=== PATIENT | female | born 1970 | race Caucasian/White ===

== ENCOUNTER 2017-07-06 19:47 | Emergency (ER) | payer BC, SELFPAY ==
[2017-07-06 19:52] VITALS: BP 162/92; PULSE 88; RESP 22; TEMP 37.2; O2SAT 95; BMI 43.7
--- NOTE | 2017-07-06 20:03 | XR_ITS ---
XR chest 2V HISTORY: ITS.REASON: shortness of breath ORDERING PHYSICIAN: Akhil Carbone MD PATIENT AGE: 46 years COMPARISON: None available FINDINGS: There is mild cardiomegaly. Pulmonary vessels are slightly prominent. Mild CHF is a consideration. Please correlate with clinical parameters. No lobar consolidation or collapse. No interstitial or pulmonary edema or pleural effusion. IMPRESSION: Cardiomegaly with mild pulmonary venous congestion suggesting mild CHF
[2017-07-06 20:33] LABS: Basophils # 0.1 K/mm3 (0-0.2); Basophils % 0.7 % (0.1-2.0); Eosinophils # 0.3 K/mm3 (0.0-0.4); Eosinophils % 2.2 % (0.1-12.0); Hematocrit 37.7 % (37.0-47.0); Hemoglobin 12.4 g/dL (12.2-16.2); Lymphocytes # 2.2 K/mm3 (0.7-4.5); Lymphocytes % 18.9 K/mm3 (10-50); Mean Corpuscular HGB Conc 32.8 g/dL (31.8-35.4); Mean Corpuscular Hemoglobin 29.6 pg (27.0-31.2); Mean Corpuscular Volume 90.3 fl (81-99); Mean Platelet Volume 6.8 fl (7.4-10.4); Monocytes # 0.5 K/mm3 (0.1-1.0); Monocytes % 4.5 % (1.7-9.3); Neutrophils # 8.5 K/mm3 (1.8-7.8); Neutrophils % 73.8 % (37.0-80.0); Platelet Count 256 K/mm3 (142-424); Red Blood Count 4.18 M/mm3 (4.20-5.40); Red Cell Distribution Width 14.1 % (11.5-17.5); White Blood Count 11.6 K/mm3 (4.8-10.8)
[2017-07-06 20:58] LABS: Lactic Acid 1.6 mmol/L (0.4-2.0)
[2017-07-06 21:02] LABS: Alanine Aminotransferase 32 U/L (12-78); Albumin/Globulin Ratio 0.9 (1.1-1.8); Alkaline Phosphatase 63 U/L (46-116); Anion Gap 9.2 mEq/L (5-15); Aspartate Amino Transferase 19 U/L (15-37); Bilirubin,Total 0.2 mg/dL (0.2-1.0); Blood Urea Nitrogen 13 mg/dL (7-18); Calcium 7.9 mg/dL (8.5-10.1); Carbon Dioxide 34 mmol/L (21.0-32.0); Chloride 100 mmol/L (98-107); Creatine Kinase 48 U/L (26-192); Creatinine Clearance Estimated 71 mL/min (0-300); Creatinine,Serum 0.84 mg/dL (0.55-1.02); Estimated Glomerular Filt Rate 72 ml/min (>60); GFR (African American) 88 ML/MIN (>60); Globulin 3.5 gm/dl (1.3-3.2); Glucose 217 mg/dL (74-106); Potassium 4.2 mmoL/L (3.5-5.1); Sodium 139 mmol/L (136-145); Thyroid Stimulating Hormone 7.07 uIU/ml (0.358-3.740); Total Protein,Serum 6.5 gm/dL (6.4-8.2); Troponin I < 0.02 ng/ml (0.00-0.06)
[2017-07-06 21:03] LABS: Creatine Kinase MB < 0.5 mg/ml (0.0-3.6)
--- NOTE | 2017-07-06 21:54 | HMH.EDNVD ---
ED Disposition Clinical Impression: Duodenitis Disposition: Home, Self-Care Condition on Discharge: Good Instructions: DI for Duodenitis Additional Instructions: call pcp for follow up Prescriptions: Pantoprazole Sodium [Protonix 40mg tablet] 40 mg PO DAILY 30 Days #30 tab Referrals: Sai Ray MD [Staff Physician] - - Critical Care Critical Care Time: No Attestation: On 07/06/17, the high probability of a clinically significant, sudden or life threatening deterioration of the following system(s) required my full and direct attention, intervention and personal management. The time I documented below is in addition to time spent performing reported procedures but includes the following listed in this critical care notation. Medical Decision Making - Medical Records Medical records reviewed: Yes: I reviewed the patient's medical records. Vital Signs: 07/06/17 19:52 Temperature 98.9 F Temperature Source Oral Pulse Rate [Right Radial] 88 Respiratory Rate 22 Blood Pressure [Right Arm] 162/92 Blood Pressure Mean [Right Arm] 115 Blood Pressure Position [Right Arm] Sitting 02 Sat by Pulse Oximetry 95 - Lab Data Lab results reviewed: Yes: I reviewed the patient's lab results. Lab Results 07/06/17 20:15: WBC 11.6 H, RBC 4.18 L, Hgb 12.4, Hct 37.7, MCV 90.3, MCH 29.6, MCHC 32.8, RDW 14.1, Plt Count 256, MPV 6.8 L, Neut % (Auto) 73.8, Lymph % (Auto) 18.9, [place] % (Auto) 4.5, Eos % (Auto) 2.2, Baso % (Auto) 0.7, Neut # (Auto) 8.5 H, Lymph # (Auto) 2.2, [place] # (Auto) 0.5, Eos # (Auto) 0.3, Baso # (Auto) 0.1 07/06/17 20:15: Sodium 139, Potassium 4.2, Chloride 100, Carbon Dioxide 34 H, Anion Gap 9.2, BUN 13, Creatinine 0.84, Estimated Creat Clear 71, Estimated GFR 72, Est GFR ( Amer) 88, Glucose 217 H, Calcium 7.9 L, Total Bilirubin 0.2, AST 19, ALT 32, Alkaline Phosphatase 63, Total Creatine Kinase 48, CK-MB (CK-2) < 0.5, CK-MB (CK-2) Rel Index 1.0, Troponin I < 0.02, Total Protein 6.5, Albumin 3.0 L, Globulin 3.5 H, Albumin/Globulin Ratio 0.9 L, TSH 7.07 H 07/06/17 20:15: B-Natriuretic Peptide 31 07/06/17 20:15: Lactic Acid 1.6 07/06/17 20:15: Amylase 26, Lipase 101 07/06/17 22:01: Urine Color Yellow, Urine Appearance Clear, Urine pH 8.5, Ur Specific [place] 1.015, Urine Protein Trace, Urine Glucose (UA) Trace, Urine Ketones Trace, Urine Blood Trace-l, Urine Nitrate Negative, Urine Bilirubin Negative, Urine Urobilinogen 0.2, Ur Leukocyte Esterase Trace Result diagrams: 07/06/17 20:15 07/06/17 20:15 Orders (Tests/Meds): ED MEDICATIONS Discontinued Medications Generic Name Dose Route Start Last Admin Trade Name Freq PRN Reason Stop Dose Admin Famotidine 20 mg 07/06/17 21:56 07/06/17 22:00 Pepcid 20mg/2ml Vial IV 07/06/17 21:57 20 mg ONCE ONE Administration Metoclopramide HCl 10 mg 07/06/17 21:56 07/06/17 22:00 Reglan 10mg/2ml Vial IVP 07/06/17 21:57 10 mg ONCE ONE Administration ORDERS Category Date Time Status CT abdomen pelvis wo con Stat Cat Scan 07/06/17 21:55 Taken Chest XR 2 view (NOT portable) [XR chest 2V] Stat Exams 07/06/17 20:03 Taken Urinalysis and Microscopic Stat Lab 07/06/17 22:01 Results Blood Culture Stat Micro 07/06/17 20:15 Received - Radiology Data #1 Image(s): Chest Image Reviewed: Yes I reviewed the patient's radiology image Preliminary Findings: Abnormal (nonspecific) - CT Data CT Scan: Abdomen, Pelvis Time Received: 23:[address] Reviewed: Yes: I have viewed the radiologist's interpretation Preliminary Findings: Abnormal (duodenitis ) - ECG Data Tracing #1 I reviewed this ECG and interpreted as documented below: Normal Sinus Rhythm: Yes Ischemic changes: non-specific ST-T wave changes - Florentin Inquiry Pt receiving controlled substance: No Nausea/Vomiting/Diarrhea HPI - General Chief complaint: Shortness of Breath/Dyspnea Stated complaint: sob,heavness in chest ,sore Time Seen by Provider:
--- NOTE | 2017-07-06 21:55 | CT_ITS ---
CT abdomen pelvis wo con CLINICAL INDICATION: Epigastric pain ITS.REASON: abd pain ORDERING PHYSICIAN: Akhil Carbone MD PATIENT AGE: 46 years COMPARISON: None TECHNIQUE: Axial images obtained with sagittal and coronal reformats. PROCEDURE: Oral Contrast: None IV Contrast: None . FINDINGS: No acute finding in the lung bases. Diffuse fatty liver with hepatomegaly. Liver measures up to 29 cm maximum transverse dimension. There is some minimal stranding of the fat in the fissure for the ligamentum teres which is nonspecific. Spleen, adrenal glands, and pancreas are unremarkable. There has been a prior cholecystectomy. Nodular soft tissue densities are noted in the upper abdomen medial to the spleen and may be due to unopacified varicosities or small lymph nodes. There is mild thickening of the right anterior perinephric renal fascia. There is also mild stranding in the fat along the lateral portion of the descending duodenum. No obstructing renal or ureteral calculi. No intestinal structure free air. A small amount fluid is present pelvis. No pelvic mass. No acute bony anomalies. IMPRESSION: 1. Fatty liver with hepatomegaly 2. Mild nonspecific stranding of the fat in the falciform ligament region, portal area, and lateral to the descending duodenum as well as right perinephric region. These findings are nonspecific. Underlying inflammatory change is a consideration. Pancreatitis could conceivably cause these findings have the pancreas has an unremarkable appearance. Duodenitis also a consideration. 3. Nodular densities in the left upper quadrant medial to the spleen which could be due to small lymph nodes or small unopacified varices.
--- NOTE | 2017-07-06 21:57 | ED_ITS ---
ED Disposition Clinical Impression: Duodenitis Disposition: Home, Self-Care Condition on Discharge: Good Instructions: DI for Duodenitis Additional Instructions: call pcp for follow up Prescriptions: Pantoprazole Sodium [Protonix 40mg tablet] 40 mg PO DAILY 30 Days #30 tab Referrals: Sai Ray MD [Staff Physician] - - Critical Care Critical Care Time: No Attestation: On 07/06/17, the high probability of a clinically significant, sudden or life threatening deterioration of the following system(s) required my full and direct attention, intervention and personal management. The time I documented below is in addition to time spent performing reported procedures but includes the following listed in this critical care notation. Medical Decision Making - Medical Records Medical records reviewed: Yes: I reviewed the patient's medical records. Vital Signs: 07/06/17 19:52 Temperature 98.9 F Temperature Source Oral Pulse Rate [Right Radial] 88 Respiratory Rate 22 Blood Pressure [Right Arm] 162/92 Blood Pressure Mean [Right Arm] 115 Blood Pressure Position [Right Arm] Sitting 02 Sat by Pulse Oximetry 95 - Lab Data Lab results reviewed: Yes: I reviewed the patient's lab results. Lab Results 07/06/17 20:15: WBC 11.6 H, RBC 4.18 L, Hgb 12.4, Hct 37.7, MCV 90.3, MCH 29.6, MCHC 32.8, RDW 14.1, Plt Count 256, MPV 6.8 L, Neut % (Auto) 73.8, Lymph % (Auto ) 18.9, [place] % (Auto) 4.5, Eos % (Auto) 2.2, Baso % (Auto) 0.7, Neut # (Auto) 8.5 H, Lymph # (Auto) 2.2, [place] # (Auto) 0.5, Eos # (Auto) 0.3, Baso # (Auto) 0.1 07/06/17 20:15: Sodium 139, Potassium 4.2, Chloride 100, Carbon Dioxide 34 H, Anion Gap 9.2, BUN 13, Creatinine 0.84, Estimated Creat Clear 71, Estimated GFR 72, Est GFR ( Amer) 88, Glucose 217 H, Calcium 7.9 L, Total Bilirubin 0.2 , AST 19, ALT 32, Alkaline Phosphatase 63, Total Creatine Kinase 48, CK-MB (CK-2 ) < 0.5, CK-MB (CK-2) Rel Index 1.0, Troponin I < 0.02, Total Protein 6.5, Albumin 3.0 L, Globulin 3.5 H, Albumin/Globulin Ratio 0.9 L, TSH 7.07 H 07/06/17 20:15: B-Natriuretic Peptide 31 07/06/17 20:15: Lactic Acid 1.6 07/06/17 20:15: Amylase 26, Lipase 101 07/06/17 22:01: Urine Color Yellow, Urine Appearance Clear, Urine pH 8.5, Ur Specific [place] 1.015, Urine Protein Trace, Urine Glucose (UA) Trace, Urine Ketones Trace, Urine Blood Trace-l, Urine Nitrate Negative, Urine Bilirubin Negative, Urine Urobilinogen 0.2, Ur Leukocyte Esterase Trace Result diagrams: 07/06/17 20:15 07/06/17 20:15 Orders (Tests/Meds): ED MEDICATIONS Discontinued Medications Generic Name Dose Route Start Last Admin Trade Name Jonathanq PRN Reason Stop Dose Admin Famotidine 20 mg 07/06/17 21:56 07/06/17 22:00 Pepcid 20mg/2ml Vial IV 07/06/17 21:57 20 mg ONCE ONE Administration Metoclopramide HCl 10 mg 07/06/17 21:56 07/06/17 22:00 Reglan 10mg/2ml Vial IVP 07/06/17 21:57 10 mg ONCE ONE Administration ORDERS Category Date Time Status CT abdomen pelvis wo con Stat Cat Scan 07/06/17 21:55 Taken Chest XR 2 view (NOT portable) [XR chest 2V] Stat Exams 07/06/17 20:03 Taken Urinalysis and Microscopic Stat Lab 07/06/17 22:01 Results Blood Culture Stat Micro 07/06/17 20:15 Received - Radiology Data #1 Image(s): Chest Image Reviewed: Yes I reviewed the patient's radiology image
[2017-07-06 22:09] LABS: Amylase 26 U/L (25-125); Lipase 101 u/L (73-393)
--- NOTE | 2017-07-06 22:11 | PC.NURSE ---
pt to ct at this time
[2017-07-06 22:24] LABS: Microscopic, Urine URINE MICROSCOPIC (MICROSCOPIC)
--- NOTE | 2017-07-06 22:24 | PC.NURSE ---
pt back from radiology
[2017-07-06 22:25] LABS: Appearance,Urine CLEAR (Clear); Bilirubin,Urine Negative (Negative); Blood, Urine TRACE-L (Negative); Color,Urine YELLOW (Yellow); Glucose,Urine (UA) TRACE (Negative); Ketones,Urine TRACE (Negative); Leukocyte Esterase,Urine TRACE (Negative); Nitrate,Urine Negative (Negative); PH,Urine 8.5 (5.0-8.5); Protein,Urine TRACE (Negative); Specific Gravity, Urine 1.015 (1.005-1.030); Urobilinogen,Urine 0.2 EU/dl (0.2)
[2017-07-06 23:25] VITALS: BP 138/70; PULSE 78; RESP 20; TEMP 36.6; O2SAT 99
[2017-07-07 00:16] LABS: Bacteria,Urine 1+ /lpf
== END 2017-07-06 23:25 | disposition home or self-care (01) ==
PROVIDERS: Emergency Provider Emergency Medicine; Family Provider Emergency Medicine; PCP Internal Medicine Adolescent Medicine
DX: K29.80 Duodenitis without bleeding (principal); E11.65 Type 2 diabetes mellitus with hyperglycemia; Z79.4 Long term (current) use of insulin; Z79.84 Long term (current) use of oral hypoglycemic drugs
CPT/HCPCS: 71046; 74176; 80053; 81001; 82150; 82550; 82553; 83605; 83690; 83880; 84443; 84484; 85025; 87040; 93005; 96374; 96375; 99283

== ENCOUNTER 2020-04-20 11:43 | Emergency (ER) | payer BC, SELFPAY ==
[2020-04-20 12:00] VITALS: BP 142/76; PULSE 87; RESP 16; TEMP 37.1; O2SAT 97; BMI 38.6
--- NOTE | 2020-04-20 12:06 | HMH.EDUTC ---
[facility] [place] Disposition Clinical Impression: Sinusitis Qualifiers: Sinusitis location: maxillary Chronicity: acute Recurrence: non-recurrent Qualified Code(s): J01.00 - Acute maxillary sinusitis, unspecified Disposition: Home, Self-Care Condition on Discharge: Good Instructions: DI for Sinusitis Additional Instructions: You have been tested for COVID19. Please isolate yourself as if you are positive until test results received. Prescriptions: Amoxicillin [Amoxicillin 875MG Tab] 875 mg PO Q12H #20 tab Transmission Status: Pending to [id number] predniSONE [Prednisone 20mg Tab] 20 mg PO BID 5 Days #10 tab Transmission Status: Pending to [id number] Referrals: Karol Jin [Primary Care Provider] - Time of Disposition: 12:09 Medical Decision Making - Florentin Inquiry Pt receiving controlled substance: No Orders (Tests/Meds): ORDERS Category Date Time Status Covid-19 Nasal PCR Sendout P&C Routine Lab 04/20/20 11:49 Ordered [facility] [place] HPI - General Stated complaint: Covid test, cough Time Seen by Provider: 04/20/20 12:06 - History of Present Illness Provider Complaint: Bilateral ear pain, cough, congesion, sinus drainage. No fever. Left ear is draining. No loss of taste or smell. No vomiting or diarrhea. Onset (ago): day(s) (3) Relieving factors: none Exacerbating factors: none Associated symptoms: denies other symptoms Treatments prior to arrival: none - Related Data Home Medications Medication Instructions Recorded Confirmed Ergocalciferol (Vitamin D2) 50,000 units PO WEEKLY 07/06/17 07/06/17 [Drisdol 50,000 units (1.25mg) capsule] Gabapentin [Gabapentin 300mg Cap] 300 mg PO TID 07/06/17 07/06/17 Insulin Aspart [Novolog Flexpen] 30 units SQ BID 07/06/17 07/06/17 Levothyroxine Sodium 300 mcg PO DAILY 07/06/17 07/06/17 [Levothyroxine 75mcg (0.075mg) Tab] Metformin HCl [Metformin HCl ER] 500 mg PO BID 07/06/17 07/06/17 Valsartan/Hydrochlorothiazide 160 mg PO DAILY 07/06/17 07/06/17 [Valsartan-Hctz 160-12.5 mg Tab] Previous Rx's Medication Instructions Recorded Pantoprazole Sodium [Protonix 40mg 40 mg PO DAILY 30 Days #30 tab 07/06/17 tablet] Amoxicillin [Amoxicillin 875MG 875 mg PO Q12H #20 tab 04/20/20 Tab] predniSONE [Prednisone 20mg 20 mg PO BID 5 Days #10 tab 04/20/20 Tab] Allergies Allergy/AdvReac Type Severity Reaction Status Date / Time NKA - NO KNOWN ALLERGIES Allergy Unknown Uncoded 04/21/17 15:35 [facility] History - Hepatitis A Screen Attestation statement:: This patient has been screened for Hepatitis A risk factors. I have reviewed the patient's past medical history: Yes Medical History: Reports:: Diabetes Mellitus Type 2 Denies:: Cancer, Diabetes Mellitus Type 1, MRSA Laterality Cases: Bilateral: Tonsillectomy Amputation: No Fractures: No - Social History Smoking Status: Former smoker Alcohol Intake: never ROS Obtained: Yes All systems reviewed & no additional complaints - Constitutional Constitutional: Denies body ache, Denies chills, Denies fever(s) - Eyes Eyes: Reports itchy eyes - ENT Ears, Nose, Mouth, and Throat: Reports ear discharge, Reports otalgia, Reports sinus pain, Reports sinus pressure, Reports sore throat - Respiratory Respiratory: Yes cough Physical Exam - General General appearance: alert, in no apparent distress - Head Head exam: atraumatic, normocephalic, normal inspection - Eye Eye exam: Present: normal appearance, PERRL, EOMI - ENT ENT exam: Present: normal exam, normal oropharynx, mucous membranes moist, normal external ear exam - Expanded ENT Exam TM/Canal exam: Bilateral TM: erythema, bulging Nose exam: Present: sinus tenderness Throat exam: Present: other (PND) - Neck Neck exam: Present: normal inspection, full ROM, trachea midline. Absent: meningismus, lymphadenopathy - Chest Chest inspection: Present: normal inspection, symmetric chest wall rise. Absent:
[2020-04-20 12:18] VITALS: BP 142/76; PULSE 87; RESP 16; TEMP 37.1; O2SAT 97
[2020-04-21 10:52] LABS: Covid-19 Nasal PCR Sendout P&C NEGATIVE
== END 2020-04-20 12:20 | disposition home or self-care (01) ==
PROVIDERS: Emergency Provider Physician Assistant; PCP Family Medicine
DX: Z20.828 Contact with and (suspected) exposure to other viral communicable diseases (principal); J01.00 Acute maxillary sinusitis, unspecified; E11.9 Type 2 diabetes mellitus without complications; Z79.899 Other long term (current) drug therapy
CPT/HCPCS: 99201; U0004

== ENCOUNTER 2021-03-10 11:22 | Emergency (ER) | payer BC, SELFPAY ==
--- NOTE | 2021-03-10 13:19 | HMH.EDUTC ---
[facility] [place] Disposition Clinical Impression: Strep throat, Bronchitis Disposition: Home, Self-Care Condition on Discharge: Good Instructions: DI for Strep Throat, Strep Throat Additional Instructions: Drink plenty of fluids. Take tylenol or ibuprofen for pain or fever. Take the medications as directed. Follow up with your regular doctor. GO TO THE ER FOR ANY WORSENING SYMPTOMS Throw your tooth brush away and get a new one. Prescriptions: Amoxicillin/Potassium Clav [Augmentin 875-125 Tablet] 1 tab PO Q12H 10 Days #20 tab Transmission Status: [id number] Benzonatate [Benzonatate 100mg cap] 100 mg PO TIDP PRN #30 cap PRN Reason: Cough Transmission Status: [id number] methylPREDNISolone [Medrol] 4 mg PO DIRECTED 6 Days #21 packet Transmission Status: [id number] Referrals: Karol Jin [Primary Care Provider] - Forms: Work/School Release Time of Disposition: 13:36 Medical Decision Making - Medical Records Medical records reviewed: No: I reviewed the patient's medical records. - Florentin Inquiry Pt receiving controlled substance: No - Lab Data Lab results reviewed: Yes: I reviewed the patient's lab results. [facility] [place] HPI - General Stated complaint: sore throat, cough, congestion Time Seen by Provider: 03/10/21 13:19 - History of Present Illness Provider Complaint: She c/o sore throat and feeling bad. She states that her symptoms began 2 days ago. - Related Data Home Medications Medication Instructions Recorded Confirmed Ergocalciferol (Vitamin D2) 50,000 units PO WEEKLY 07/06/17 07/06/17 [Drisdol 50,000 units (1.25mg) capsule] Gabapentin [Gabapentin 300mg Cap] 300 mg PO TID 07/06/17 07/06/17 Insulin Aspart [Novolog Flexpen] 30 units SQ BID 07/06/17 07/06/17 Levothyroxine Sodium 300 mcg PO DAILY 07/06/17 07/06/17 [Levothyroxine 75mcg (0.075mg) Tab] Metformin HCl [Metformin HCl ER] 500 mg PO BID 07/06/17 07/06/17 Valsartan/Hydrochlorothiazide 160 mg PO DAILY 07/06/17 07/06/17 [Valsartan-Hctz 160-12.5 mg Tab] Previous Rx's Medication Instructions Recorded Pantoprazole Sodium [Protonix 40mg 40 mg PO DAILY 30 Days #30 tab 07/06/17 tablet] Amoxicillin [Amoxicillin 875MG 875 mg PO Q12H #20 tab 04/20/20 Tab] predniSONE [Prednisone 20mg 20 mg PO BID 5 Days #10 tab 04/20/20 Tab] Amoxicillin/Potassium Clav 1 tab PO Q12H 10 Days #20 tab 03/10/21 [Augmentin 875-125 Tablet] Benzonatate [Benzonatate 100mg 100 mg PO TIDP PRN #30 cap 03/10/21 cap] methylPREDNISolone [Medrol] 4 mg PO DIRECTED 6 Days #21 03/10/21 packet Allergies Allergy/AdvReac Type Severity Reaction Status Date / Time NKA - NO KNOWN ALLERGIES Allergy Unknown Uncoded 04/21/17 15:35 [facility] History - Hepatitis A Screen Attestation statement:: This patient has been screened for Hepatitis A risk factors. I have reviewed the patient's past medical history: Yes Medical History: Reports:: Diabetes Mellitus Type 2 Denies:: Cancer, Diabetes Mellitus Type 1, MRSA Laterality Cases: Bilateral: Tonsillectomy Amputation: No Fractures: No - Social History Smoking Status: Former smoker Alcohol Intake: never Occupational Status: other ROS Obtained: Yes All systems reviewed & no additional complaints - Constitutional Constitutional: Reports chills, Reports fever(s), Reports poor appetite, Reports malaise - Eyes Eyes: Denies eye discharge - ENT Ears, Nose, Mouth, and Throat: Reports as per HPI - Cardiovascular Cardiovascular: Denies chest pain - Respiratory Respiratory: Reports chest congestion, Reports cough, Denies dyspnea, Denies stridor, Denies wheezing - Gastrointestinal Gastrointestingal: Denies: abdominal pain, diarrhea, nausea, vomiting Physical Exam - General General appearance: alert, in no apparent distress - Head Head exam: atraumatic, normocephalic, normal inspection - Eye Eye exam: P
[2021-03-10 13:30] VITALS: BP 114/62; PULSE 68; RESP 20; TEMP 36.6; O2SAT 95; BMI 35.2
[2021-03-10 13:37] LABS: UTC Strep Screen (Rapid) Positive (Negative)
[2021-03-10 13:45] VITALS: BP 114/62; PULSE 68; RESP 20; TEMP 36.6
== END 2021-03-10 13:56 | disposition home or self-care (01) ==
PROVIDERS: Emergency Provider Nurse Practitioner Family; PCP Family Medicine
DX: J02.0 Streptococcal pharyngitis (principal); J20.9 Acute bronchitis, unspecified; E11.9 Type 2 diabetes mellitus without complications
CPT/HCPCS: 87880; 96372; 99202; C9803; G0463; U0003; U0005

== ENCOUNTER 2021-11-16 09:47 | Emergency (ER) | payer BC, SELFPAY ==
[2021-11-16 09:47] VITALS: BP 136/71; PULSE 85; RESP 18; TEMP 37.1; O2SAT 95; BMI 34.3
--- NOTE | 2021-11-16 09:56 | HMH.EDUTC ---
[facility] [place] Disposition Clinical Impression: Exposure to COVID-19 virus Pharyngitis Qualifiers: Pharyngitis/tonsillitis etiology: unspecified etiology Qualified Code(s): J02.9 - Acute pharyngitis, unspecified Disposition: Home, Self-Care Condition on Discharge: Good Instructions: DI for Pharyngitis/Tonsillopharyngitis -- Adult, DI for COVID-19 (Suspected or Confirmed ), Preventing the Spread of Coronavirus Discharge Instructions Additional Instructions: Drink plenty of fluids. Take tylenol or ibuprofen for pain or fever. Take the medications as directed. Follow up with your regular doctor. GO TO THE ER FOR ANY WORSENING SYMPTOMS Quarantine until you know the results of your covid-19 test. Notify your school or workplace of your results and follow their instructions regarding return to work/school. Prescriptions: Ondansetron [Zofran 4mg ODT] 4 mg PO Q8HP PRN #20 tab PRN Reason: Nausea Transmission Status: Received by [id number] methylPREDNISolone [Medrol] 4 mg PO DIRECTED 6 Days #21 packet Transmission Status: Received by [id number] Azithromycin [Z-Matt 250mg Tab*] 250 mg PO UD DOSE PK #6 tab Transmission Status: Received by [id number] Referrals: Karol Jin [Primary Care Provider] - Forms: Work/School Release Time of Disposition: 10:35 Medical Decision Making - Medical Records Medical records reviewed: No: I reviewed the patient's medical records. - Florentin Inquiry Pt receiving controlled substance: No Vital Signs: 11/16/21 09:47 11/16/21 10:50 Temperature 98.7 F 98.7 F Temperature Source Oral Oral Pulse Rate 85 Pulse Rate [Brachial] 85 Respiratory Rate 18 18 Blood Pressure 136/71 Blood Pressure [Right Arm] 136/71 Blood Pressure Mean [Right Arm] 92 Blood Pressure Source [Right Arm] Automatic Cuff Blood Pressure Position [Right Arm] Sitting 02 Sat by Pulse Oximetry 95 Oxygen Delivery Method Room Air - Lab Data Lab results reviewed: Yes: I reviewed the patient's lab results. Lab Results 11/16/21 10:02: Strep Scn Rapid Clinic Negative Orders (Tests/Meds): ORDERS Category Date Time Status Strep Screen Confirmation Stat Micro 11/16/21 10:02 Received [facility] [place] HPI - General Stated complaint: h/a congestion Time Seen by Provider: 11/16/21 09:57 - History of Present Illness Provider Complaint: She states that for the past 2 days she has had sore throat, chills, low grade fever. - Related Data Home Medications Medication Instructions Recorded Confirmed Ergocalciferol (Vitamin D2) 50,000 units PO WEEKLY 07/06/17 07/06/17 [Drisdol 50,000 units (1.25mg) capsule] Gabapentin [Gabapentin 300mg Cap] 300 mg PO TID 07/06/17 07/06/17 Insulin Aspart [Novolog Flexpen] 30 units SQ BID 07/06/17 07/06/17 Levothyroxine Sodium 300 mcg PO DAILY 07/06/17 07/06/17 [Levothyroxine 75mcg (0.075mg) Tab] Metformin HCl [Metformin HCl ER] 500 mg PO BID 07/06/17 07/06/17 Valsartan/Hydrochlorothiazide 160 mg PO DAILY 07/06/17 07/06/17 [Valsartan-Hctz 160-12.5 mg Tab] Previous Rx's Medication Instructions Recorded Pantoprazole Sodium [Protonix 40mg 40 mg PO DAILY 30 Days #30 tab 07/06/17 tablet] Amoxicillin [Amoxicillin 875MG 875 mg PO Q12H #20 tab 04/20/20 Tab] predniSONE [Prednisone 20mg 20 mg PO BID 5 Days #10 tab 04/20/20 Tab] Amoxicillin/Potassium Clav 1 tab PO Q12H 10 Days #20 tab 03/10/21 [Augmentin 875-125 Tablet] Benzonatate [Benzonatate 100mg 100 mg PO TIDP PRN #30 cap 03/10/21 cap] methylPREDNISolone [Medrol] 4 mg PO DIRECTED 6 Days #21 03/10/21 packet Azithromycin [Z-Matt 250mg Tab*] 250 mg PO UD DOSE PK #6 tab 11/16/21 Ondansetron [Zofran 4mg ODT] 4 mg PO Q8HP PRN #20 tab 11/16/21 methylPREDNISolone [Medrol] 4 mg PO DIRECTED 6 Days #21 11/16/21 packet Allergies Allergy/AdvReac Type Severity Reaction Status Date / Time NKA - NO KNOWN ALLERGIES Allergy Unkn
[2021-11-16 10:12] LABS: UTC Strep Screen (Rapid) Negative (Negative)
[2021-11-16 10:50] VITALS: BP 136/71; PULSE 85; RESP 18; TEMP 37.1; O2SAT 95
== END 2021-11-16 10:50 | disposition home or self-care (01) ==
PROVIDERS: Emergency Provider Nurse Practitioner Family; PCP Family Medicine
DX: U07.1 COVID-19 (principal); J02.9 Acute pharyngitis, unspecified; E11.9 Type 2 diabetes mellitus without complications; Z79.4 Long term (current) use of insulin
CPT/HCPCS: 87880; 99212; C9803; G0463; U0003; U0005

== ENCOUNTER 2022-12-15 17:53 | Emergency (ER) | payer BC, SELFPAY ==
[2022-12-15 17:54] VITALS: BP 139/58; PULSE 66; RESP 18; TEMP 36.3; O2SAT 100; BMI 30.9
[2022-12-15 18:13] LABS: Coronavirus 19, PCR Not Detected (NotDetected); Influenza A, PCR Not Detected (NotDetected); Influenza B, PCR Not Detected (NotDetected)
[2022-12-15 18:22] LABS: Basophils # 0.1 K/mm3 (0-0.2); Basophils % 0.4 % (0.1-2.0); Eosinophils # 0.1 K/mm3 (0.0-0.4); Eosinophils % 0.5 % (0.1-12.0); Hematocrit 46.9 % (37.0-47.0); Hemoglobin 15.7 g/dL (12.2-16.2); Lymphocytes # 1.2 K/mm3 (0.7-4.5); Lymphocytes % 7.8 % (10-50); Mean Corpuscular HGB Conc 33.4 g/dL (31.8-35.4); Mean Corpuscular Hemoglobin 28.7 pg (27.0-31.2); Mean Platelet Volume 8.2 fl (7.4-10.4); Monocytes # 0.3 K/mm3 (0.1-1.0); Monocytes % 1.9 % (1.7-9.3); Neutrophils # 14.2 K/mm3 (1.8-7.8); Neutrophils % 89.5 % (37.0-80.0); Platelet Count 298 K/mm3 (142-424); Red Blood Count 5.45 M/mm3 (4.20-5.40); Red Cell Distribution Width 13.9 % (11.5-17.5); White Blood Count 15.9 K/mm3 (4.8-10.8)
--- NOTE | 2022-12-15 18:23 | PC.NURSE ---
DR MORRIS AT BEDSIDE
[2022-12-15 18:25] LABS: MANUAL DIFFERENTIAL MANUAL DIFFERENTIAL (MANUAL DIFF)
[2022-12-15 18:31] VITALS: BP 179/85; PULSE 89; RESP 20; O2SAT 100
[2022-12-15 18:39] LABS: Alanine Aminotransferase 31 U/L (12-78); Albumin Level 4.8 g/dl (3.5-5.0); Albumin/Globulin Ratio 1.3 (1.1-1.8); Alkaline Phosphatase 83 U/L (38-126); Anion Gap 21.4 mEq/L (5-15); Aspartate Amino Transferase 31 U/L (14-36); Blood Urea Nitrogen 24 mg/dl (7-17); Calcium 10.2 mg/dl (8.4-10.2); Carbon Dioxide 23 mmol/L (22.0-30.0); Chloride 99 mmol/L (98-107); Creatinine Clearance Estimated 93 mL/min (50-200); Estimated Glomerular Filt Rate 65 ml/min (>60); GFR (African American) 79 ML/MIN (>60); Globulin 3.6 g/dL (1.3-3.2); Glucose 200 mg/dl (74-100); Lipase 92 U/L (23-300); Potassium 3.4 mmoL/L (3.5-5.1); Sodium 140 mmol/L (136-145); Total Protein,Serum 8.4 g/dl (6.3-8.2)
[2022-12-15 18:43] LABS: Lymphocytes % 15 % (10-50); Monocytes % 2 % (2-9); Neutrophils % 83 % (42-76); Platelet Estimate Normal; RBC Morphology Normal; Total Cells Counted 100
--- NOTE | 2022-12-15 18:48 | CT_ITS ---
PROCEDURE INFORMATION: Exam: CT Abdomen And Pelvis With Contrast Exam date and time: 12/15/2022 7:08 PM Age: 51 years old Clinical indication: Abdominal pain; Generalized; Additional info: Abd pain TECHNIQUE: Imaging protocol: Computed tomography of the abdomen and pelvis with contrast. Radiation optimization: All CT scans at this facility use at least one of these dose optimization techniques: automated exposure control; mA and/or kV adjustment per patient size (includes targeted exams where dose is matched to clinical indication); or iterative reconstruction. Contrast material: ISOVUE; Contrast volume: 75 ml; Contrast route: IV; REPORTING DATA: Count of CT and Cardiac NM exams in prior 12 months: This patient has received 0 known CTs and 0 known cardiac nuclear medicine studies in the 12 months prior to the current study. COMPARISON: [facility] CT abdomen pelvis wo con 07/06/2017 10:05 PM FINDINGS: Liver: Normal. No mass. Gallbladder and bile ducts: Gallbladder is surgically absent. Pancreas: Normal. No ductal dilation. Spleen: Normal. No splenomegaly. Adrenal glands: Normal. No mass. Kidneys and ureters: Normal. No hydronephrosis. Stomach and bowel: Old postsurgical changes of the stomach. No bowel wall thickening or evidence of bowel obstruction. Appendix: No evidence of appendicitis. Intraperitoneal space: Unremarkable. No free air. No significant fluid collection. Vasculature: Moderate atherosclerotic calcification in the aorta. No evidence of aortic aneurysm or dissection. Lymph nodes: Unremarkable. No enlarged lymph nodes. Urinary bladder: Unremarkable as visualized. Reproductive: Uterus is surgically absent. No adnexal abnormality. Bones/joints: Significant bilateral facet arthropathy in the lower lumbar spine. No acute fracture. Soft tissues: Unremarkable. IMPRESSION: No acute abnormality. Chronic findings as noted.
--- NOTE | 2022-12-15 19:02 | HMH.EDGENADL ---
Discharge Plan Disposition Patient Disposition: Home, Self-Care Condition: Fair Prescriptions Prescriptions: New prochlorperazine maleate [Compazine] 10 mg tablet 10 mg PO Q8H PRN (Reason: nausea and vomiting) Qty: 14 0RF ketorolac 10 mg tablet 10 mg PO Q8H PRN (Reason: pain) 5 Days Qty: 10 0RF No Action benzonatate 100 MG capsule 100 mg PO TIDP PRN (Reason: Cough) Qty: 30 0RF methylprednisolone 4 MG tablets,dose pack 4 mg PO DIRECTED 6 Days Qty: 21 0RF amoxicillin-pot clavulanate 1 EACH tablet 1 tab PO Q12H 10 Days Qty: 20 0RF valsartan-hydrochlorothiazide 1 EACH tablet 160 mg PO DAILY Patient Comments: TAKE 1 TABLET EVERY DAY levothyroxine 75 MCG tablet 300 mcg PO DAILY Patient Comments: TAKE 1 TABLET BY MOUTH DAILY gabapentin 300 MG capsule 300 mg PO TID Patient Comments: TAKE 1 CAPSULE BY MOUTH 3 TIMES DAILY ergocalciferol (vitamin D2) 50,000 UNIT capsule 50,000 units PO WEEKLY Patient Comments: TAKE 1 CAPSULE BY MOUTH EVERY 7 DAYS metformin 500 MG tablet extended release 24 hr 500 mg PO BID Patient Comments: TAKE 1 TABLET BY MOUTH DAILY insulin aspart U-100 [Novolog FlexPen U-100 Insulin] 100 insulin pen 30 units SQ BID Patient Comments: pantoprazole 40 MG tablet,delayed release (DR/EC) 40 mg PO DAILY 30 Days Qty: 30 0RF prednisone 20 MG tablet 20 mg PO BID 5 Days Qty: 10 0RF amoxicillin 875 MG tablet 875 mg PO Q12H Qty: 20 0RF azithromycin 250 MG tablet 250 mg PO UD DOSE PK Qty: 6 0RF Rx Instructions: Take two (2) tablets today, then one (1) tablet days #2 thru #5 methylprednisolone 4 MG tablets,dose pack 4 mg PO DIRECTED 6 Days Qty: 21 0RF ondansetron 4 MG tablet,disintegrating 4 mg PO Q8HP PRN (Reason: Nausea) Qty: 20 0RF Referrals Follow up/Referrals: Karol Jin [Primary Care Provider] - See instructions Activity Restrictions/Add. Instructions Additional Instructions/Restrictions: As discussed, it appears your pain is likely related to gastroenteritis versus chronic pancreatitis, given that it is focal and given that it is not generalized I have low suspicion for any other vision changes that we would not see on CT contrasted imaging. Please take the pain medication and nausea medication as needed and return with new or worsening symptoms. Please return if you are unable to keep things down at home. Clinical Impressions Clinical Impression: Gastroenteritis Instructions Patient Instructions: DI for Acute Abdominal Pain Discharge ED Provider: Giovany Cruz General Adult HPI General Chief complaint: Abdominal Pain Stated complaint: vomiting, chills, fever Time Seen by Provider: 12/15/22 19:02 Mode of Arrival: Wheelchair Limitations: No Limitations Description of Symptoms (Recalled from ER Triage Doc. by RN): PT REPORTS GENERALIZED ABDOMINAL PAIN AND CRAMPING THAT STARTED LAST NIGHT. REPORTS N/V/D. REPORTS CHILLS, DENIES FEVER History of Present Illness HPI narrative: Patient presents for evaluation of epigastric abdominal pain with associated nausea, vomiting, nonbloody diarrhea, gradual in onset starting last night, constant, stable in course, patient has had decreased p.o. intake and urine output since then. Has not had similar symptoms before, no sick contacts, no recent travel. No chest pain or palpitations. Denies chronic medical issues, recent antibiotics, or daily medications. Pain is severe and nonradiating. Denies significant alcohol intake. Denies any recreational drug use. No associated fevers. Related Data Home Medications Medication Instructions Recorded Confirmed ergocalciferol (vitamin D2) 1,250 50,000 units PO WEEKLY Osteoporosis 07/06/17 07/06/17 mcg (50,000 unit) capsule gabapentin 300 mg capsule 300 mg PO TID Diabetes 07/06/17 07/06/17 insulin aspart U-100 100 unit/mL 30 units SQ BID Diabetes 07/06/17 07/06/17 (3
--- NOTE | 2022-12-15 19:04 | PC.NURSE ---
Pt gone to RAD via stretcher
[2022-12-15 19:06] LABS: Lipase 91 U/L (23-300)
[2022-12-15 19:07] LABS: Lactic Acid 2.8 mmol/L (0.7-2.1)
--- NOTE | 2022-12-15 19:14 | PC.NURSE ---
Pt returned from RAD
--- NOTE | 2022-12-15 19:18 | PC.NURSE ---
Rounded on pt. Advised she was still having stomach pain. Also advised she was unable to give urine sample at this time.
[2022-12-15 19:37] LABS: Microscopic, Urine URINE MICROSCOPIC (MICROSCOPIC)
[2022-12-15 19:47] LABS: Appearance,Urine CLEAR (Clear); Bilirubin,Urine Negative (Negative); Blood, Urine Negative (Negative); Color,Urine YELLOW (Yellow); Glucose,Urine (UA) TRACE (Negative); Ketones,Urine 3+ (Negative); Leukocyte Esterase,Urine Negative (Negative); Nitrate,Urine Negative (Negative); PH,Urine 7.5 (5.0-8.5); Protein,Urine Negative (Negative); Urobilinogen,Urine 0.2 EU/dl (0.2)
[2022-12-15 20:17] VITALS: BP 151/72; PULSE 94; O2SAT 100
[2022-12-15 21:07] VITALS: BP 166/83; PULSE 90; RESP 20; TEMP 36.3
[2022-12-15 21:11] LABS: WBC,Urine Occasional #/hpf (0-3)
[2022-12-15 22:57] LABS: Reflex Lactic Add Lactic Reflex
== END 2022-12-15 21:23 | disposition home or self-care (01) ==
PROVIDERS: Emergency Provider Emergency Medicine; PCP Family Medicine
DX: R10.13 Epigastric pain (principal); K52.9 Noninfective gastroenteritis and colitis, unspecified; Z87.891 Personal history of nicotine dependence
CPT/HCPCS: 74177; 80053; 81001; 83605; 83690; 85007; 85025; 87086; 87636; 96361; 96374; 96375; 96376; 99285; J2405; Q9967

== ENCOUNTER 2023-03-06 13:19 | Emergency (ER) | payer BC, SELFPAY ==
[2023-03-06] VITALS (7 sets, daily range): BP systolic 113–186; BP diastolic 50–96; PULSE 70–89; RESP 16–18; TEMP 36.7–37.1; O2SAT 95–99; BMI 29.2
--- NOTE | 2023-03-06 13:45 | CT_ITS ---
FINAL REPORT CLINICAL HISTORY: abdominal pain COMPARISON: 12/15/2022 FINDINGS: CT OF THE ABDOMEN AND PELVIS WITH CONTRAST Axial CT images of the abdomen and pelvis were obtained after the administration of IV contrast. Coronal reformatted images were also obtained and reviewed.This study was performed with techniques to keep radiation doses as low as reasonably achievable (ALARA). Individualized dose reduction techniques using automated exposure control or adjustment of mA and/or kV according to the patient''s size were employed. Abdomen: The lung bases are clear. The heart is normal in size. The liver has an unremarkable appearance, without evidence of mass or biliary ductal dilatation. Post cholecystectomy. The spleen is unremarkable. No adrenal mass is present. The pancreas has an unremarkable appearance. The kidneys are normal, without evidence of mass or hydronephrosis. The aorta is normal in caliber. Mild vascular calcifications. There is no free fluid or adenopathy. No mass or abnormal fluid collection is seen. Postoperative changes from gastric sleeve. Pelvis: The appendix normal. The urinary bladder is unremarkable. No inflammatory process is seen. Post hysterectomy. There is no evidence of mass or adenopathy. There is no evidence of bowel obstruction. IMPRESSION: No evidence of acute intra-abdominal process. Reviewed, Interpreted and Dictated by Hector Zepeda III, MD Transcribed by Rosalinda Metz Authenticated and [facility]
[2023-03-06 13:54] LABS: Chloride 101 mmol/L (98-107); Sodium 140 mmol/L (136-145)
[2023-03-06 13:55] LABS: Potassium 3.2 mmoL/L (3.5-5.1)
[2023-03-06 13:57] LABS: Alanine Aminotransferase 22 U/L (12-78); Albumin Level 5.1 g/dl (3.5-5.0); Alkaline Phosphatase 62 U/L (38-126); Anion Gap 17.2 mEq/L (5-15); Aspartate Amino Transferase 25 U/L (14-36); Blood Urea Nitrogen 26 mg/dl (7-17); Carbon Dioxide 25 mmol/L (22.0-30.0); Creatinine Clearance Estimated 65 mL/min (50-200); Estimated Glomerular Filt Rate 47 ml/min (>60); GFR (African American) 57 ML/MIN (>60); Lipase 63 U/L (23-300)
[2023-03-06 13:58] LABS: Albumin/Globulin Ratio 1.4 (1.1-1.8); Globulin 3.6 g/dL (1.3-3.2); Glucose 116 mg/dl (74-100); Total Protein,Serum 8.7 g/dl (6.3-8.2)
--- NOTE | 2023-03-06 14:00 | HMH.EDGENADL ---
Discharge Plan Disposition Patient Disposition: Home, Self-Care Prescriptions Prescriptions: No Action benzonatate 100 MG capsule 100 mg PO TIDP PRN (Reason: Cough) Qty: 30 0RF methylprednisolone 4 MG tablets,dose pack 4 mg PO DIRECTED 6 Days Qty: 21 0RF amoxicillin-pot clavulanate 1 EACH tablet 1 tab PO Q12H 10 Days Qty: 20 0RF prochlorperazine maleate [Compazine] 10 mg tablet 10 mg PO Q8H PRN (Reason: nausea and vomiting) Qty: 14 0RF ketorolac 10 mg tablet 10 mg PO Q8H PRN (Reason: pain) 5 Days Qty: 10 0RF valsartan-hydrochlorothiazide 1 EACH tablet 160 mg PO DAILY Patient Comments: TAKE 1 TABLET EVERY DAY levothyroxine 75 MCG tablet 300 mcg PO DAILY Patient Comments: TAKE 1 TABLET BY MOUTH DAILY gabapentin 300 MG capsule 300 mg PO TID Patient Comments: TAKE 1 CAPSULE BY MOUTH 3 TIMES DAILY ergocalciferol (vitamin D2) 50,000 UNIT capsule 50,000 units PO WEEKLY Patient Comments: TAKE 1 CAPSULE BY MOUTH EVERY 7 DAYS metformin 500 MG tablet extended release 24 hr 500 mg PO BID Patient Comments: TAKE 1 TABLET BY MOUTH DAILY insulin aspart U-100 [Novolog FlexPen U-100 Insulin] 100 insulin pen 30 units SQ BID Patient Comments: pantoprazole 40 MG tablet,delayed release (DR/EC) 40 mg PO DAILY 30 Days Qty: 30 0RF prednisone 20 MG tablet 20 mg PO BID 5 Days Qty: 10 0RF amoxicillin 875 MG tablet 875 mg PO Q12H Qty: 20 0RF azithromycin 250 MG tablet 250 mg PO UD DOSE PK Qty: 6 0RF Rx Instructions: Take two (2) tablets today, then one (1) tablet days #2 thru #5 methylprednisolone 4 MG tablets,dose pack 4 mg PO DIRECTED 6 Days Qty: 21 0RF ondansetron 4 MG tablet,disintegrating 4 mg PO Q8HP PRN (Reason: Nausea) Qty: 20 0RF Referrals Follow up/Referrals: Karol Jin [Primary Care Provider] - See instructions Activity Restrictions/Add. Instructions Additional Instructions/Restrictions: At this time it was felt you are safe to be discharged home. If new or worsening symptoms please do not hesitate to return the emergency department. Please continue to follow-up outpatient as discussed. Clinical Impressions Clinical Impression: Abdominal pain, epigastric, Nausea vomiting and diarrhea Instructions Patient Instructions: DI for Acute Abdominal Pain Discharge ED Provider: Debra Raines General Adult HPI <Debra Raines MD - Last Filed: 03/06/23 15:57> General Chief complaint: Abdominal Pain Stated complaint: stomach pain, dry heaving Time Seen by Provider: 03/06/23 13:52 Mode of Arrival: Ambulatory Source of Information: Patient Limitations: No Limitations Description of Symptoms (Recalled from ER Triage Doc. by RN): Presents to ED with c/o N/V/D with cramping epigastric pain that gradually started last night. Patient denies fever/urinary symptoms/or blood instool/emesis. PMH:HTN and diabetes. Last BM last night. Denies meds [employer]. History of Present Illness HPI narrative: This 52-year-old female presents to the emergency department with nausea vomiting diarrhea and cramping epigastric pain that started last night. Patient states she has history of hypertension diabetes and she had similar symptoms approximately 1 month ago. She states she was evaluated here and her pain was able to be controlled. She was sent home with prescriptions and had been well until this started again yesterday. Patient denies any bloody or dark emesis, nonbilious emesis, her diarrhea is not bloody or black. she has sharp epigastric pain and has been having dry heaving with small amount of clear fluid coming up. She does have history of cholecystectomy and hysterectomy after having prior cancer.. Related Data Home Medications Medication Instructions Recorded Confirmed ergocalciferol (vitamin D2) 1,250 50,000 units PO WEEKLY Osteoporosis 07/06/17 07/06/17 mcg (50,000 unit) capsule gabapentin 300
[2023-03-06 14:13] LABS: Basophils % 0.2 % (0.1-2.0); Eosinophils # 0.1 K/mm3 (0.0-0.4); Eosinophils % 0.6 % (0.1-12.0); Hemoglobin 16.1 g/dL (12.2-16.2); Lymphocytes # 1.8 K/mm3 (0.7-4.5); Mean Corpuscular HGB Conc 34.9 g/dL (31.8-35.4); Mean Corpuscular Hemoglobin 30.1 pg (27.0-31.2); Mean Corpuscular Volume 86.3 fl (81-99); Mean Platelet Volume 8.6 fl (7.4-10.4); Monocytes % 5.7 % (1.7-9.3); Neutrophils # 13.6 K/mm3 (1.8-7.8); Neutrophils % 82.5 % (37.0-80.0); Platelet Count 240 K/mm3 (142-424); Red Blood Count 5.33 M/mm3 (4.20-5.40); Red Cell Distribution Width 14.1 % (11.5-17.5); White Blood Count 16.5 K/mm3 (4.8-10.8)
--- NOTE | 2023-03-06 14:30 | PC.NURSE ---
Rounded on patient; call light within reach
[2023-03-06 14:35] LABS: MANUAL DIFFERENTIAL MANUAL DIFFERENTIAL (MANUAL DIFF)
[2023-03-06 14:48] LABS: Lactic Acid 1.2 mmol/L (0.7-2.1)
[2023-03-06 15:12] LABS: Lymphocytes % 20 % (10-50); Monocytes % 10 % (2-9); Neutrophils % 70 % (42-76); Platelet Estimate Normal; RBC Morphology Normal; Total Cells Counted 100
--- NOTE | 2023-03-06 15:29 | ECG_ITS ---
APPROVED REPORT Exam: Resting ECG HR:75 bpm ECG Measurements Heart Rate 75 AXES VT 163 P 69 QRSd 93 QRS 59 QT 395 T 57 QTc 424 Conclusion SINUS RHYTHM NORMAL ECG UNCONFIRMED REPORT Electronically signed by : Meek George MD 03/06/2023 21:23:42
[2023-03-06 15:48] LABS: Troponin I 0.02 ng/ml (0.00-0.034)
--- NOTE | 2023-03-06 16:00 | PC.NURSE ---
Rounded on patient; call light within reach
[2023-03-06 16:17] LABS: Microscopic, Urine URINE MICROSCOPIC (MICROSCOPIC)
[2023-03-06 16:20] LABS: Appearance,Urine CLEAR (Clear); Blood, Urine Negative (Negative); Color,Urine YELLOW (Yellow); Glucose,Urine (UA) Negative (Negative); Ketones,Urine 2+ (Negative); Leukocyte Esterase,Urine Negative (Negative); Nitrate,Urine Negative (Negative); PH,Urine 5.5 (5.0-8.5); Protein,Urine Negative (Negative); Urobilinogen,Urine 0.2 EU/dl (0.2)
[2023-03-06 16:29] LABS: Bilirubin,Urine 2+ (Negative)
[2023-03-06 16:31] LABS: RBC,Urine Occasional #/hpf (0-3); Squamous Epithelial Cell,Urine Occasional #/hpf (0-5)
[2023-03-06 17:21] LABS: Troponin I 0.02 ng/ml (0.00-0.034)
== END 2023-03-06 18:00 | disposition home or self-care (01) ==
PROVIDERS: Emergency Medicine; Emergency Provider Emergency Medicine; PCP Family Medicine
DX: R10.13 Epigastric pain (principal); E87.6 Hypokalemia; R11.2 Nausea with vomiting, unspecified; R19.7 Diarrhea, unspecified
CPT/HCPCS: 36415; 74177; 80053; 81001; 83605; 83690; 84484; 85007; 85025; 93005; 96374; 96375; 99285; J2405; Q9967

== ENCOUNTER 2023-05-22 16:52 | Emergency (ER) | payer BC, SELFPAY ==
[2023-05-22 16:54] VITALS: BP 182/71; PULSE 56; RESP 18; TEMP 36.4; O2SAT 100; BMI 28.3
--- NOTE | 2023-05-22 17:14 | PC.NURSE ---
DR SMYTH AT BEDSIDE
[2023-05-22 17:15] VITALS: BP 193/75; PULSE 53; O2SAT 100
[2023-05-22 17:20] LABS: Coronavirus 19, PCR Not Detected (NotDetected); Influenza A, PCR Not Detected (NotDetected); Influenza B, PCR Not Detected (NotDetected)
[2023-05-22] MEDS: 0.9 % SODIUM CHLORIDE 1000ML 1,000 ML 999 ML IV (17:20)
[2023-05-22] MEDS: KETOROLAC 30MG/ML VIAL 15 MG IV (17:21)
[2023-05-22] MEDS: ONDANSETRON 4MG/2ML VIAL 4 MG IV (17:21)
[2023-05-22 17:31] LABS: Basophils # 0.1 K/mm3 (0-0.2); Basophils % 0.5 % (0.1-2.0); Chloride 103 mmol/L (98-107); Eosinophils # 0.1 K/mm3 (0.0-0.4); Eosinophils % 1.1 % (0.1-12.0); Hematocrit 43.3 % (37.0-47.0); Hemoglobin 15.7 g/dL (12.2-16.2); Lymphocytes # 1.3 K/mm3 (0.7-4.5); Lymphocytes % 10.2 % (10-50); Mean Corpuscular HGB Conc 36.1 g/dL (31.8-35.4); Mean Corpuscular Hemoglobin 31.6 pg (27.0-31.2); Mean Corpuscular Volume 87.4 fl (81-99); Mean Platelet Volume 7.8 fl (7.4-10.4); Monocytes # 0.4 K/mm3 (0.1-1.0); Monocytes % 3.2 % (1.7-9.3); Neutrophils # 10.9 K/mm3 (1.8-7.8); Neutrophils % 84.9 % (37.0-80.0); Platelet Count 236 K/mm3 (142-424); Potassium 3.8 mmoL/L (3.5-5.1); Red Blood Count 4.96 M/mm3 (4.20-5.40); Red Cell Distribution Width 14.5 % (11.5-17.5); Sodium 138 mmol/L (136-145); White Blood Count 12.8 K/mm3 (4.8-10.8)
[2023-05-22 17:34] LABS: Alanine Aminotransferase 20 U/L (12-78); Albumin Level 4.5 g/dl (3.5-5.0); Albumin/Globulin Ratio 1.6 (1.1-1.8); Alkaline Phosphatase 67 U/L (38-126); Anion Gap 13.8 mEq/L (5-15); Aspartate Amino Transferase 29 U/L (14-36); Blood Urea Nitrogen 13 mg/dl (7-17); Calcium 9.8 mg/dl (8.4-10.2); Carbon Dioxide 25 mmol/L (22.0-30.0); Creatinine Clearance Estimated 95 mL/min (50-200); Estimated Glomerular Filt Rate 75 ml/min (>60); GFR (African American) 90 ML/MIN (>60); Globulin 2.9 g/dL (1.3-3.2); Glucose 174 mg/dl (74-100); Total Protein,Serum 7.4 g/dl (6.3-8.2)
--- NOTE | 2023-05-22 17:59 | PC.NURSE ---
ROUNDED ON PT, CONTINUES TO REPORT ABD PAIN
[2023-05-22 18:03] VITALS: BP 179/92; PULSE 61; O2SAT 100
--- NOTE | 2023-05-22 18:14 | HMH.EDGENADL ---
Discharge Plan Disposition Patient Disposition: Home, Self-Care Prescriptions Prescriptions: New ondansetron 4 mg tablet,disintegrating 4 mg PO Q6H PRN (Reason: nausea and vomiting) Qty: 10 0RF No Action benzonatate 100 MG capsule 100 mg PO TIDP PRN (Reason: Cough) Qty: 30 0RF methylprednisolone 4 MG tablets,dose pack 4 mg PO DIRECTED 6 Days Qty: 21 0RF amoxicillin-pot clavulanate 1 EACH tablet 1 tab PO Q12H 10 Days Qty: 20 0RF prochlorperazine maleate [Compazine] 10 mg tablet 10 mg PO Q8H PRN (Reason: nausea and vomiting) Qty: 14 0RF ketorolac 10 mg tablet 10 mg PO Q8H PRN (Reason: pain) 5 Days Qty: 10 0RF valsartan-hydrochlorothiazide 1 EACH tablet 160 mg PO DAILY Patient Comments: TAKE 1 TABLET EVERY DAY levothyroxine 75 MCG tablet 300 mcg PO DAILY Patient Comments: TAKE 1 TABLET BY MOUTH DAILY gabapentin 300 MG capsule 300 mg PO TID Patient Comments: TAKE 1 CAPSULE BY MOUTH 3 TIMES DAILY ergocalciferol (vitamin D2) 50,000 UNIT capsule 50,000 units PO WEEKLY Patient Comments: TAKE 1 CAPSULE BY MOUTH EVERY 7 DAYS metformin 500 MG tablet extended release 24 hr 500 mg PO BID Patient Comments: TAKE 1 TABLET BY MOUTH DAILY insulin aspart U-100 [Novolog FlexPen U-100 Insulin] 100 insulin pen 30 units SQ BID Patient Comments: pantoprazole 40 MG tablet,delayed release (DR/EC) 40 mg PO DAILY 30 Days Qty: 30 0RF prednisone 20 MG tablet 20 mg PO BID 5 Days Qty: 10 0RF amoxicillin 875 MG tablet 875 mg PO Q12H Qty: 20 0RF azithromycin 250 MG tablet 250 mg PO UD DOSE PK Qty: 6 0RF Rx Instructions: Take two (2) tablets today, then one (1) tablet days #2 thru #5 methylprednisolone 4 MG tablets,dose pack 4 mg PO DIRECTED 6 Days Qty: 21 0RF ondansetron 4 MG tablet,disintegrating 4 mg PO Q8HP PRN (Reason: Nausea) Qty: 20 0RF Referrals Follow up/Referrals: Dania Mesa MD [Primary Care Provider] - See instructions Activity Restrictions/Add. Instructions Additional Instructions/Restrictions: Call your family doctor to establish care for this visit to the emergency department and schedule follow-up within 48 hours to ensure improvement. If you have any worsening of your condition or any other concerning signs or symptoms, return to the emergency department or your primary care doctor for further evaluation. Zofran every 6 hours as needed for nausea and vomiting Take Tylenol 1000 mg every 6 hours (4 times daily) and ibuprofen 400 mg every 6 hours (4 times daily) as needed with food and water to prevent GI upset and kidney damage. Clinical Impressions Clinical Impression: Abdominal pain, vomiting, and diarrhea, Body aches Instructions Patient Instructions: DI for Acute Abdominal Pain Discharge ED Provider: Farhan Schmitt General Adult HPI General Chief complaint: Abdominal Pain Stated complaint: hot flashes nausea ba diarrhea vomiting Time Seen by Provider: 05/22/23 16:57 Mode of Arrival: Ambulatory Source of Information: Patient Limitations: No Limitations Description of Symptoms (Recalled from ER Triage Doc. by RN): PT REPORTS N/V/D THAT STARTED YESTERDAY. REPORTS ABDOMINAL PAIN AND FEELS HOT AND COLD DENIES FEVER History of Present Illness HPI narrative: 52-year-old female with no relevant medical history presenting with clamminess, body aches, vomiting and diarrhea. Started yesterday, patient states she is feeling dehydrated and needs fluids. Has been vomiting nonbloody, nonbilious vomit and having diarrhea is nonbloody. Denies abdominal pain, dysuria, hematuria, vaginal bleeding or discharge, or any other concerns. Has not taken any meds for this. Related Data Home Medications Medication Instructions Recorded Confirmed ergocalciferol (vitamin D2) 1,250 50,000 units PO WEEKLY Osteoporosis 07/06/17 07/06/17 mcg (50,000 unit) capsule gabapentin 300 mg capsule 300 mg PO TID Diabetes 07/06/17 07/06/17 insulin aspart U-100 100 unit/mL 30 units SQ BID Diabetes 07/06/17 07/06/17 (3 mL) subcutaneous pen (Novolog FlexPen U-100 Insulin aspart) levothyroxine 75 mcg tablet 300 mcg PO DAILY Diabetes 07/06/17 07/06/17 metformin 500 mg tablet,extended 500 mg PO BID Diabetes 07/06/17 07/06/17 release 24 hr valsartan 160 160 mg PO DAILY Hypertension 07/06/17 07/06/17 mg-hydrochlorothiazide 12.5 mg tablet Previous Rx's Medication Instructions Recorded pantoprazole 40 mg tablet,delayed 40 mg PO DAILY 30 days #30 tabs 07/06/17 release amoxicillin 875 mg tablet 875 mg PO Q12H #20 tabs 04/20/20 prednisone 20 mg tablet 20 mg PO BID 5 days #10 tabs 04/20/20 amoxicillin 875 mg-potassium 1 tab PO Q12H 10 days #20 tabs 03/10/21 clavulanate 125 mg tablet benzonatate 100 mg capsule 100 mg PO TIDP PRN Cough #30 caps 03/10/21 methylprednisolone 4 mg tablets in 4 mg PO DIRECTED 6 days #21 03/10/21 a dose pack packets azithromycin 250 mg tablet 250 mg PO UD DOSE PK #6 tabs 11/16/21 methylprednisolone 4 mg tablets in 4 mg PO DIRECTED 6 days #21 11/16/21 a dose pack packets ondansetron 4 mg disintegrating 4 mg PO Q8HP PRN Nausea #20 tabs 11/16/21 tablet ketorolac 10 mg tablet 10 mg PO Q8H PRN pain 5 days #10 12/15/22 tabs prochlorperazine maleate 10 mg 10 mg PO Q8H PRN nausea and 12/15/22 tablet (Compazine) vomiting #14 tabs ondansetron 4 mg disintegrating 4 mg PO Q6H PRN nausea and 05/22/23 tablet vomiting #10 tabs Allergies Allergy/AdvReac Type Severity Reaction Status Date / Time NKA - NO KNOWN ALLERGIES Allergy Unknown Uncoded 04/21/17 15:35 PFSH [facility] Disclaimer: The information contained in this section may have been updated after the patient was seen, as this information can be updated by other users. Social History Smoking Status: Never smoker alcohol intake: never current occupational status: other Travel in the last 8 weeks: None ROS Obtained: Yes All systems reviewed & no additional complaints except as documented Physical Exam General General appearance: alert and in no apparent distress Head Head exam: atraumatic and normocephalic Eye Eye exam: Present normal appearance, PERRL and EOMI ENT ENT exam: Present mucous membranes moist Neck Neck exam: Present normal inspection, full ROM and trachea midline Respiratory Respiratory exam: Absent respiratory distress, wheezes, stridor, accessory muscle use or prolonged expiratory phase Cardiovascular Cardiovascular exam: Present normal rhythm Abdominal Exam Abdominal exam: Present soft; Absent distention, tenderness, guarding, rebound or rigidity Extremities Exam Extremities exam: Absent edema Neurological Exam Neurological exam: Present alert, oriented X3, CN II-XII intact and normal gait; Absent motor sensory deficit Skin Skin exam: Present warm and dry; Absent diaphoresis or erythema Medical Decision Making Medical Records Medical records reviewed: Yes I reviewed the patient's medical records. Florentin Inquiry Pt receiving controlled substance: No Florentin was queried for this patient: No Vital Signs: 05/22/23 16:54 05/22/23 17:15 05/22/23 18:03 Temperature 97.6 F Temperature Source Oral Pulse Rate 53 L 61 Pulse Rate [Radial] 56 L Respiratory Rate 18 Blood Pressure 193/75 H 179/92 H Blood Pressure [Right Arm] 182/71 H Blood Pressure Mean 117 Blood Pressure Mean [Right Arm] 108 Blood Pressure Source [Right Arm] Automatic Cuff Blood Pressure Position [Right Arm] Sitting 02 Sat by Pulse Oximetry 100 100 100 Oxygen Delivery Method Room Air Room Air Lab Data Lab Results 05/22/23 17:04: SARS-CoV-2 (PCR) Not detected, Influenza A Untype (PCR) Not detected, Influenza Type B (PCR) Not detected 05/22/23 17:12: WBC 12.8 H, RBC 4.96, Hgb 15.7, Hct 43.3, MCV 87.4, MCH 31.6 H, MCHC 36.1 H, RDW 14.5, Plt Count 236, MPV 7.8, Neut % (Auto) 84.9 H, Lymph % (Auto) 10.2, Sevier % (Auto) 3.2, Eos % (Auto) 1.1, Baso % (Auto) 0.5, Neut # (Auto) 10.9 H, Lymph # (Auto) 1.3, Sevier # (Auto) 0.4, Eos # (Auto) 0.1, Baso # (Auto) 0.1, Sodium 138, Potassium 3.8, Chloride 103, Carbon Dioxide 25, Anion Gap 13.8, BUN 13, Creatinine 0.80, Estimated Creat Clear 95, Estimated GFR 75, Est GFR ( Amer) 90, Glucose 174 H, Calcium 9.8, Total Bilirubin 1.0, AST 29, ALT 20, Alkaline Phosphatase 67, Troponin I < 0.01, Total Protein 7.4, Albumin 4.5, Globulin 2.9, Albumin/Globulin Ratio 1.6, Lipase 66 05/22/23 17:12 05/22/23 17:12 Orders (Tests/Meds): ED MEDICATIONS Generic Name Dose Route Start Last Admin Trade Name Jonathanq PRN Reason Stop Dose Admin Sodium Chloride 10 ml 05/22/23 17:12 Sodium Chloride 0.9% 10ml Flush Syringe IV 06/21/23 17:11 NEEDED PRN Maintain IV Site Sodium Chloride 8 ml 05/22/23 19:26 Sodium Chloride 0.9% 10ml Vial IV 06/21/23 19:25 NEEDED PRN dilute pepcid Discontinued Medications Generic Name Dose Route Start Last Admin Trade Name Jonathanq PRN Reason Stop Dose Admin Acetaminophen 1,000 mg 05/22/23 18:24 05/22/23 18:29 Acetaminophen 1,000mg/100ml Vial IV 05/22/23 18:25 1,000 mg ONCE ONE Administration Belladonna Alkaloids 60 ml 05/22/23 19:26 05/22/23 19:38 Belladonna Alkaloids 60 Ml Ml PO 05/22/23 19:27 60 ml ONCE ONE Administration Famotidine 20 mg 05/22/23 19:26 05/22/23 19:38 Famotidine 20mg/2ml Vial IV 05/22/23 19:27 20 mg ONCE ONE Administration Sodium Chloride 1,000 mls @ 999 mls/hr 05/22/23 17:17 05/22/23 17:20 Sod Chlor 0.9% 1000ml Bag IV 05/22/23 18:17 999 mls/hr .Q1H1M ONE Administration Iopamidol 100 ml 05/22/23 20:59 05/22/23 21:00 Iopamidol-370 (76%);100ml Bottle IV 05/22/23 21:00 100 ml ONCE ONE Administration Ketorolac Tromethamine 15 mg 05/22/23 17:17 05/22/23 17:21 Ketorolac 30mg/Ml Vial IV 05/22/23 17:18 15 mg ONCE ONE Administration Ondansetron HCl 4 mg 05/22/23 17:17 05/22/23 17:21 Ondansetron 4mg/2ml Vial IV 05/22/23 17:18 4 mg ONCE ONE Administration Sodium Chloride 50 ml 05/22/23 20:59 05/22/23 21:00 0.9 % Sodium Chloride 50 Ml Vial IV 05/22/23 21:00 50 ml ONCE ONE Administration Sodium Chloride 10 ml 05/22/23 20:59 05/22/23 21:00 Sodium Chloride 0.9% 10ml Syr (Rad Only) IV 05/22/23 21:00 10 ml ONCE ONE Administration ORDERS Category Date Time Status CT angio abdomen pelvis Stat Cat Scan 05/22/23 20:42 Completed Complete Blood Count Auto Diff Stat Lab 05/22/23 17:12 Completed Comprehensive Metabolic Panel Stat Lab 05/22/23 17:12 Completed Lipase Stat Lab 05/22/23 17:12 Completed Rapid PCR Covid and Flu A/B Stat Lab 05/22/23 17:04 Completed Trop I [Troponin I] Stat Lab 05/22/23 17:12 Completed Troponin I Q3H Lab 05/22/23 22:30 Ordered Troponin I Q3H Lab 05/23/23 01:30 Ordered Medical Decision Narrative: 52-year-old female with no relevant medical history presenting with clamminess, body aches, vomiting and diarrhea. Started yesterday, patient states she is feeling dehydrated and needs fluids. Has been vomiting nonbloody, nonbilious vomit and having diarrhea is nonbloody. Denies abdominal pain, dysuria, hematuria, vaginal bleeding or discharge, or any other concerns. Has not taken any meds for this. History was obtained via conversation with patient. On arrival, patient hemodynamically stable, alert, oriented x4, appropriate, GCS 15, moving all extremities spontaneously, pupils equal and reactive to light. Full physical exam performed and significant for tired appearing woman in no acute distress. Nontachycardic, normotensive, hypertensive if anything. Afebrile, saturating appropriately. Lungs clear to auscultation, abdomen soft, nontender, no flank tenderness. Differential includes viral syndrome, gastroenteritis, enteritis, pancreatitis, among others. Patient was given fluids, Zofran, Toradol for symptomatic management and correction of underlying abnormalities. Workup independently interpreted and significant for mild leukocytosis 12.8. Nonactionable chemistry. Troponin negative. Lipase negative. COVID swab negative. On reevaluation, patient still in pain, given Pepcid and GI cocktail. Conversation was had with patient regarding likelihood of CT scan revealing any useful information given age, comorbidities, and symptoms largely compatible with viral syndrome, patient would like to proceed with CT scan. CT abdomen pelvis ordered. CT abdomen pelvis no acute abnormalities. see radiology read for full review of final results. given patient presentation, workup, history, this most likely represents acute viral syndrome. Because patient at baseline without signs or symptoms of clinical decompensation, deemed appropriate for discharge. Results were relayed to patient who voiced understanding and were agreeable to outpatient management and follow up. At the time of discharge the patient was hemodynamically stable, tolerating PO, and mobilizing appropriately. Critical Care Critical Care Time Critical Care Time: No
[2023-05-22 18:28] LABS: Lipase 66 U/L (23-300)
[2023-05-22] MEDS: ACETAMINOPHEN 1,000MG/100ML VIAL 1000 MG IV (18:29)
[2023-05-22] MEDS: FAMOTIDINE 20MG/2ML VIAL 20 MG IV (19:38)
[2023-05-22] MEDS: BELLADONNA ALKALOIDS 60 ML ML PO (19:38)
[2023-05-22 19:57] LABS: Troponin I < 0.01 ng/ml (0.00-0.034)
--- NOTE | 2023-05-22 20:42 | CT_ITS ---
PROCEDURE INFORMATION: Exam: CTA Abdomen and Pelvis With Contrast Exam date and time: 05/22/2023 8:51 PM Age: 52 years old Clinical indication: Abdominal pain; Generalized; Additional info: Diffuse abdominal pain out of proportion to exam TECHNIQUE: Imaging protocol: Computed tomographic angiography of the abdomen and pelvis with contrast. Exam focused on the arteries. 3D rendering (Not supervised by radiologist): MIP and/or 3D reconstructed images were created by the technologist. Radiation optimization: All CT scans at this facility use at least one of these dose optimization techniques: automated exposure control; mA and/or kV adjustment per patient size (includes targeted exams where dose is matched to clinical indication); or iterative reconstruction. Contrast material: ISOVUE 370; Contrast volume: 100 ml; Contrast route: INTRAVENOUS (IV); COMPARISON: CT ABDOMEN PELVIS W CON 03/06/2023 2:14 PM FINDINGS: Aorta: No aortic aneurysm. No aortic dissection. Celiac trunk and mesenteric arteries: No occlusion or significant stenosis. Renal arteries: No occlusion or significant stenosis. Right iliac arteries: No occlusion or significant stenosis. Left iliac arteries: No occlusion or significant stenosis. Liver: No mass. Mild fatty liver. Measures 20 cm. Gallbladder and bile ducts: Surgically absent. Pancreas: Unremarkable. No mass. No ductal dilation. Spleen: Unremarkable. No splenomegaly. Adrenal glands: Unremarkable. No mass. Kidneys and ureters: Unremarkable. No solid mass. No hydronephrosis. Stomach and bowel: Unremarkable. No obstruction. No mucosal thickening. Appendix: No evidence of appendicitis. Intraperitoneal space: Unremarkable. No free air. No significant fluid collection. Lymph nodes: Unremarkable. No enlarged lymph nodes. Urinary bladder: Unremarkable. No mass. Reproductive: Unremarkable as visualized. Bones/joints: No acute fracture. Soft tissues: Unremarkable. IMPRESSION: 1. Unremarkable CTA. 2. Hepatomegaly with mild fatty liver infiltration
[2023-05-22] MEDS: IOPAMIDOL-370 (76%);100ML BOTTLE 100 ML IV (21:00)
[2023-05-22] MEDS: SODIUM CHLORIDE 0.9% 10ML SYR (RAD ONLY) 10 ML IV (21:00)
[2023-05-22] MEDS: 0.9 % SODIUM CHLORIDE 50 ML VIAL IV (21:00)
[2023-05-22] MEDS: PROMETHAZINE HCL 25MG/ML 1ML VIAL 25 MG IV (21:41)
[2023-05-22] MEDS: SODIUM CHLORIDE 0.9% 25ML BAG 25 ML IV (21:42)
[2023-05-22 22:07] VITALS: BP 118/78; PULSE 70; RESP 18; TEMP 36.7; O2SAT 97
== END 2023-05-22 22:10 | disposition home or self-care (01) ==
PROVIDERS: Emergency Provider Emergency Medicine; PCP Family Medicine
DX: R10.9 Unspecified abdominal pain (principal); R11.2 Nausea with vomiting, unspecified; R19.7 Diarrhea, unspecified
CPT/HCPCS: 74174; 80053; 83690; 84484; 85025; 87636; 96361; 96374; 96375; 99285; J0131; J2405; Q9967